=== PATIENT | female | born 1945 | race Caucasian/White ===

== ENCOUNTER 2022-11-13 09:28 | Inpatient (IN) | payer MEDICARE, SELFPAY ==
[2022-11-13 09:41] VITALS: BP 132/101; PULSE 109; RESP 18; TEMP 37.4; O2SAT 96; BMI 18.2
--- NOTE | 2022-11-13 09:47 | ED.AMS ---
HPI - Altered Mental Status General Chief Complaint: Stroke Stated Complaint: STROKE ALERT Time Seen by Provider: 11/13/22 09:35 Source: family (Son, Ford Alan ) and EMS Mode of arrival: EMS Limitations: altered mental status History of Present Illness HPI narrative: 76-year-old female past medical history adrenal insufficiency, LETTY, delirium, hypertension, GERD, ischemic colitis, hyperlipidemia, hyponatremia, normocytic anemia, obstructive sleep apnea, peripheral neuropathy who is brought to emergency department for change in mental status. Information came from EMS and from the patient's son. The patient is currently at [facility]. According to EMS, the patient's last well-known time was last night and this morning, when the nurses were rounding on the patient, the thumb that she was altered the patient was confused. The patient was talking but her language is nonsensical. According to the patient's son, patient has had several episodes of change in mental status on off the workup has been negative for stroke. The son states that the last time the patient had 1 of these episodes she was at [facility] and was diagnosed with a pulmonary embolism. Patient is currently taking Eliquis. Patient was made a stroke alert by EMS. I evaluated the patient on the stretcher. She was able to tell me her 1st name but not her last name. She was not able to follow simple commands. She would repeat words that she her from me or from the nursing staff. I did obtain an ED record from [facility] dated 10/30/2022. Patient presented with altered mental status. Patient was found to have bilateral PEs and an elevated troponin. ED diagnosis was delirium, bilateral pulmonary embolism, acute kidney injury and elevated troponin. Related Data Allergies Allergy/AdvReac Type Severity Reaction Status Date / Time No Known Allergies Allergy Verified 11/13/22 09:41 Review of Systems Review of Systems: Yes Unobtainable due to mental status [facility] Past Medical History [facility] Narrative: Past medical history: Adrenal insufficiency, LETTY, chronic pain syndrome, constipation, delirium, depression with anxiety, essential hypertension, falls, GERD, ischemic colitis, [place] syndrome, hyperlipidemia, hypokalemia, hyponatremia, melena, myoclonic gammopathy, normocytic anemia, obstructive sleep apnea, osteoporosis, peripheral neuropathy, surgical history: Appendectomy, , hysterectomy, cholecystectomy, ovarian cyst removed, peripheral nerve stimulator Social History Social History Use of substances other than those prescribed or required for medical reasons: Unknown Advance Directives: Yes Advance Directives on File: Yes Advance Directives Date on File: 11/13/22 Physical Exam ED Vital Signs: Vital Signs - 24 hr 11/13/22 09:41 11/13/22 12:08 Temperature 99.4 F Pulse Rate 109 H 102 H Respiratory Rate 18 15 Blood Pressure 132/101 H 177/95 H Pulse Oximetry 96 98 Oxygen Delivery Method Room Air Room Air BMI result Body Mass Index 18.2 Vital signs revealed an elevated pulse of 109. Elevated blood pressure of 132/108. Temperature was 99.4 degrees rectally. Exam General: Awake, patient is talking but her speech is nonsensical, she does repeat words that she hears. She does not follow simple commands Head: Normocephalic, atraumatic EENT: PERRL, Lids normal, sclera normal, conjunctiva normal, nose normal , ears normal, throat without erythema or exudates Neck: Supple, no adenopathy, trachea midline and nontender Lung: breath sounds symmetric, no wheezing, rales or rhonchi Chest: symmetric movement, nontender Heart: regular rate and rhythm, normal S1, S2 2/6 systolic murmur best heard the left lower sternal border or rubs Abdomen: soft, non-tender, nondistended, normal bowel sounds Extremities: Patient has had it heel boots on, patient's right lower extremity is larger than the left Neuro: Awake, oriented to person only, does not follow simple commands, repeats words that she hears otherwise speech is nonsensical Medical Decision Making Medical Decision Making MDM Narrative: 76-year-old female past medical history adrenal insufficiency, LETTY, delirium, hypertension, GERD, ischemic colitis, hyperlipidemia, hyponatremia, normocytic anemia, obstructive sleep apnea, peripheral neuropathy, bilateral pulmonary embolism diagnosed 10/30/2022-on Eliquis who is brought to emergency department for change in mental status last well-known time was last night and the patient was found to be altered this morning when the nursing staff at her care facility rounded on her. According to the patient's son, patient has had several presentations the past and recently was seen at [facility] and diagnosed with pulmonary embolism and is currently on Eliquis. Patient's vital signs did reveal an elevated blood pressure elevated pulse, she was afebrile. Patient is awake but has nonsensical speech and repeats words that she hears. I ordered the following evaluation: CBC, CMP, COVID-19, influenza, lipase, PT/INR, PT INR, troponin, TSH with reflex T4, urinalysis, chest x-ray one view, CT scan of the brain without IV contrast, EKG 13:01: At this time I suspect the patient may have an infectious process is the cause of her symptoms Patient's laboratory evaluation revealed normocytic anemia which is most likely chronic. Patient does have evidence for urinary tract infection based on her urinalysis microscopic evaluation. I did add blood cultures and lactic acid to the patient's laboratory evaluation The patient does have significant peripheral edema, she is not hypotensive therefore I do not think that she has a 30 cc/kilogram bolus but I will order 500 cc of normal saline IV bolus. Patient remains hypertensive she has had no episodes of hypotension Patient was ordered to get ceftriaxone 1 g IV. I will discuss admission with the covering hospitalist. Differential Diagnosis Differential Diagnoses: The differential diagnosis associated with the presentation includes Differential diagnosis includes was not limited to stroke, bleed, toxic metabolic syndrome, electrolyte abnormality, anemia Admission/Observation Consideration of admission/observation: Escalation of care including admission/observation considered Lab Data 11/13/22 10:54 11/13/22 10:54 Labs: Lab Results 11/13/22 11/13/22 11/13/22 Range/Units 09:42 10:15 10:54 WBC 10.3 (4.8-10.8) X10*3/uL RBC 3.10 L (4.20-5.50) X10*6/uL Hgb 9.3 L (12.0-16.0) g/dl Hct 28.6 L (37.0-47.0) % MCV 92.3 (80.0-98.0) fL MCH 30.0 (27.0-33.0) pg MCHC 32.5 (31.0-35.0) g/dl RDW 14.9 (11.0-16.0) % Plt Count 459 H (160-400) X10*3/uL MPV 9.5 (9.4-12.3) fL Immature Gran % (Auto) 0.8 H (0.0-0.4) % Neut % (Auto) 80.4 H (45-73) % Lymph % (Auto) 7.0 L (20-40) % [place] % (Auto) 9.3 (2-11) % Eos % (Auto) 2.0 (0-4) % Baso % (Auto) 0.5 (0-2) % Lymph # (Auto) 0.7 L (1.2-4.9) X10*3/uL [place] # (Auto) 1.0 (0.1-1.2) X10*3/uL Eos # (Auto) 0.2 (0.0-0.4) X10*3/uL Baso # (Auto) 0.1 (0.0-0.2) X10*3/uL Abs Immat Gran (auto) 0.08 H (0.00-0.03) X10*3/uL Absolute Neuts (auto) 8.3 (2.0-8.3) x10*3/uL Absolute Nucleated RBC 0.000 (0.0-0.012) X10*3/uL Nucleated RBC % (auto) 0.0 (0.0-0.2) /100WBC PT 16.6 H (11.1-13.3) SEC Whole Blood PT 16.4 H (11.1-13.5) sec INR 1.4 H (0.9-1.1) Whole Blood INR 1.4 H (0.9-1.1) APTT 34.6 (26.0-36.4) SEC Sodium 144 (135-145) mmol/L Potassium 3.9 (3.3-5.1) mmol/L Chloride 112 H (96-108) mmol/L Carbon Dioxide 20 L (22-29) mmol/L Anion Gap 16 (12-20) BUN 11 (9-16) mg/dL Creatinine 0.82 (0.5-1.4) mg/dL Estim Creat Clear Calc 48.5 Estimated GFR > 60 POC Glucose 116 H (60-115) mg/dL Random Glucose 111 (60-115) mg/dL Calcium 9.8 (8.4-10.2) mg/dL Total Bilirubin 0.6 (0.0-1.0) mg/dL AST 13 (5-31) U/L ALT 5 (0-31) U/L Alkaline Phosphatase 90 (39-117) U/L Troponin I High Sens 5.2 (<3.5-17.0) ng/L Total Protein 6.4 L (6.5-8.0) g/dL Albumin 3.0 L (3.5-5.0) g/dL Lipase 31 (8-78) U/L TSH 2.51 (0.32-4.0) uIU/mL Urine Color Yellow Urine Appearance Turbid Urine pH 5.5 (5.0-9.0) Ur Specific [place] 1.010 (1.005-1.025) Urine Protein 30 (1+) H (Neg-Trace) mg/dL Urine Glucose (UA) Negative (Negative) mg/dL Urine Ketones Negative (Negative) mg/dL Urine Blood Moderate (2+) H (Negative) Urine Nitrite Positive H (Negative) Ur Leukocyte Esterase Large (3+) H (Negative) Urine RBC 3-5 H (0-2) /HPF Urine WBC >50 H (0-5) /HPF Ur Squamous Epith Cells 3-5 (0-2) /HPF Urine Bacteria 4+ (None Seen) Hyaline Casts 0-2 (0-2) /LPF COVID-19 (YOLANDA) Negative (Negative) COVID-19 Clin Com See Note Influenza Type A (NUPUR) Negative (Negative) Influenza Type B (NUPUR) Negative (Negative) Influenza A & B Note See Note Independent Interpretation I performed an independent interpretation of an: Plain X-Ray and CT Scan Interpretation: My independent interpretation patient's chest x-ray is as follows: No acute disease, no pneumonia or infiltrates My independent interpretation patient's CT scan of the brain without IV contrast as follows: No acute bleed, stroke, she does have atrophy Radiology Impression Discussion of test interpretation with radiology: I have reviewed the radiologist's reading. Radiologist Impression: CT head/brain wo IV con IMPRESSION: 1. No evidence of acute intracranial hemorrhage or edematous territorial infarction. 2. 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 Moderate underlying microangiopathy and generalized cerebral volume loss. Dictated By: Evans Woodall DO XR chest 1V IMPRESSION: No active cardiopulmonary disease Dictated By: Raj Haas MD Discharge Plan Discharge Clinical Impression: Acute alteration in mental status, Urinary tract infection Patient Disposition: Admitted As Inpatient
--- NOTE | 2022-11-13 09:56 | PC.NURSE ---
pt a&ox0. pt not alert and oriented at this time. pt [facility] from [facility] after pt was found w/ ams, slurred speech and not being able to obey commands. LKW was 11/11. pt was found in this state when she woke up this am around 0700. 20gIV placed in left forearm. pt had foamy vomiting episode while triaging into system. vomiting episode has now subsided. provider bedside assessing pt.
--- NOTE | 2022-11-13 10:16 | PC.NURSE ---
xray bedside and imaging completed. pt now transporting to CT at this time.
--- NOTE | 2022-11-13 11:18 | PC.NURSE ---
pt not able to obey commands at this time - failed swallow eval.
--- NOTE | 2022-11-13 11:21 | PC.NURSE ---
straight catheterization performed - pt tolerated well. 250ml of cloudy, yellow urine obtained and sent to lab. documented in i&o section. purewick applied to suction. labs obtained and sent to lab. resting comfortably in no apparent distress. respirations even and unlabored. call ferrell placed within reach.
[2022-11-13 12:08] VITALS: BP 177/95; PULSE 102; RESP 15; O2SAT 98
--- NOTE | 2022-11-13 13:29 | PC.NURSE ---
pt pulling at medical equipment/iv site which is now wrapped, tech was unable to draw labs due to patient retracting her arms, spoke with provider who ordered IVP medications to help the patient relax to better participate in their care.
--- NOTE | 2022-11-13 13:46 | PC.NURSE ---
tech was able to draw 1st set of blood cultures
--- NOTE | 2022-11-13 13:46 | PC.NURSE ---
tech was able to obtain first round of cultures, will administer abx & IVF when 2nd set is obtained and sent.
--- NOTE | 2022-11-13 14:13 | PC.NURSE ---
nsr/sinus tachy on bus monitor. pt currently sleeping at this time. medication administered per provider order. resting comfortably in no apparent distress. respirations even and unlabored. call ferrell placed within reach.
--- NOTE | 2022-11-13 14:58 | PM.IMHP ---
History of Present Illness Date of Service: 11/13/22 Attending physician on admission: Craig Echavarria Chief Complaint: ams 76-year-old female with history of adrenal insufficiency, chronic pain syndrome, chronic constipation, depression and anxiety, hypertension, GERD, history of ischemic colitis, [place] syndrome, hyperlipidemia, monoclonal gammopathy, anemia of chronic disease, obstructive sleep apnea compliant with CPAP, peripheral neuropathy, history of TIAs, unspecified dementia, and recent history of pulmonary embolism anticoagulated with Eliquis presented to the ED earlier today from [facility], where she has been residing for [facility] following hospitalization last month for bilateral PEs at [facility], for evaluation of altered mental status. Per her son, at baseline, patient is oriented though has some degree of unspecified dementia at baseline. This morning, patient was very confused and agitated and appeared to be favoring the left side per SNF staff. On arrival to the hospital, patient slightly tachycardic at 01:02, vitals otherwise stable. Patient afebrile. There is no leukocytosis. She has a normocytic anemia with H/H 9.3/28.6%. Renal function appears normal, electrolyte levels Normal except for a slightly elevated chloride 112 and CO2 of 20. Troponin within normal limits. Urinalysis revealed leukocyte 3+, positive nitrites, 2+ blood, 1+ protein, positive urinary sediment, 4+ bacteria. Negative for COVID-19, influenza. Chest x-ray was negative for any acute cardiopulmonary abnormality. Head CT negative for any acute intracranial hemorrhage or edematous territorial infarction. There is chronic encephalomalacia of the right posterior antral gyrus and moderate underlying microangiopathy with generalized cerebral volume loss. ED provider initiated ceftriaxone for treatment of UTI with acute metabolic encephalopathy. On my exam, patient is somnolent and not arousable as she did require Haldol and lorazepam due to increasing agitation while in the ED. Review of Systems Review of Systems: Yes Unobtainable due to mental condition and Unobtainable due to mental status [facility] Medical History History of TIA (transient ischemic attack) Bilateral pulmonary embolism Anemia, chronic disease Peripheral neuropathy Obstructive sleep apnea on CPAP History of ischemic colitis [place] syndrome GERD (gastroesophageal reflux disease) Hypertension Monoclonal gammopathy Dementia Depression with anxiety Chronic constipation Chronic pain syndrome Adrenal insufficiency Social History Household Members: Unknown / Unable to assess and Other Housing: [facility] Unable to assess alcohol history related to: Unable to respond Patient Tobacco Use Status: Never used Tobacco Use of substances other than those prescribed or required for medical reasons: Unable to respond Currently Displaying Signs/Symptoms of Drug Intoxication Withdrawal: No Advance Directives: Yes Advance Directives on File: Yes Advance Directives Date on File: 11/13/22 Do you have thoughts of harming others: None Do you have a plan to hurt others: No Plan Recently lost weight without trying: Unsure How much weight loss: Not applicable Nutrition Risks: No Nutritional Risk Patient : No service: No Meds Allergies Allergy/AdvReac Type Severity Reaction Status Date / Time No Known Allergies Allergy Verified 11/13/22 09:41 Home Medications Medication Instructions Recorded Confirmed Last Taken Type acetaminophen 300 mg-codeine 30 mg 2 tab PO BID PRN Pain 11/13/22 11/13/22 Unknown History tablet apixaban 5 mg tablet (Eliquis) 5 mg PO BID 11/13/22 11/13/22 Unknown History aspirin 81 mg tablet,delayed 81 mg PO DAILY 11/13/22 11/13/22 Unknown History release atorvastatin 40 mg tablet 40 mg PO DAILY 11/13/22 11/13/22 Unknown History baclofen 20 mg tablet 20 mg PO BID 11/13/22 11/13/22 Unknown History bisacodyl 10 mg rectal suppository [address] DAILY PRN Constipation 11/13/22 11/13/22 Unknown History bupropion HCl 100 mg tablet 100 mg PO BID 11/13/22 11/13/22 Unknown History fluticasone furoate 27.5 1 spray intranasal BEDTIME 11/13/22 11/13/22 Unknown History mcg/actuation nasal spray,suspension lamotrigine 25 mg tablet 25 mg PO DAILY 11/13/22 11/13/22 Unknown History magnesium hydroxide 400 mg/5 mL 30 ml PO DAILY PRN Constipation 11/13/22 11/13/22 Unknown History oral suspension (Milk of Magnesia) naloxone 4 mg/actuation nasal 4 mg intranasal Q3M PRN Opioid 11/13/22 11/13/22 Unknown History spray (Narcan) Overdose ondansetron 4 mg disintegrating 4 mg PO Q8H PRN Nausea And Vomiting 11/13/22 11/13/22 Unknown History tablet pantoprazole 40 mg tablet,delayed 40 mg PO DAILY@0630 11/13/22 11/13/22 Unknown History release propranolol 20 mg tablet 20 mg PO BID 11/13/22 11/13/22 Unknown History sodium phosphates 19 gram-[address] DAILY PRN Constipation 11/13/22 11/13/22 Unknown History gram/118 mL enema (Fleet Enema) Physical Exam Vital Signs and Narrative: Vital Signs: Last Vital Signs Temp 99.4 F 11/13/22 09:41 Pulse 102 H 11/13/22 12:08 Resp 15 11/13/22 12:08 BP 177/95 H 11/13/22 12:08 Pulse Ox 98 11/13/22 12:08 O2 Del Method Room Air 11/13/22 12:08 BMI result Body Mass Index 18.2 Constitutional - somnolent and unarousable, No apparent distress Cardiovascular - S1S2, RRR, No edema Respiratory - Normal lung expansion, Normal respiratory effort, No respiratory distress, CTA bilaterally Gastrointestinal - NT / ND; +BS; No rebound or guarding Extremities - no calf tenderness bilaterally, no swelling Skin - Warm/Dry Neurological - somnolent and not arousable, snoring. PERRLA Results Labs 11/14/22 06:38 11/14/22 06:38 Labs: Laboratory Results - last 24 hr 11/13/22 11/13/22 11/13/22 09:42 10:15 10:54 MCV 92.3 MCH 30.0 MCHC 32.5 RDW 14.9 Plt Count 459 H MPV 9.5 Immature Gran % (Auto) 0.8 H Neut % (Auto) 80.4 H Lymph % (Auto) 7.0 L [place] % (Auto) 9.3 Eos % (Auto) 2.0 Baso % (Auto) 0.5 Lymph # (Auto) 0.7 L [place] # (Auto) 1.0 Eos # (Auto) 0.2 Baso # (Auto) 0.1 Abs Immat Gran (auto) 0.08 H Absolute Neuts (auto) 8.3 Absolute Nucleated RBC 0.000 Nucleated RBC % (auto) 0.0 PT 16.6 H Whole Blood PT 16.4 H INR 1.4 H Whole Blood INR 1.4 H APTT 34.6 Anion Gap 16 Estim Creat Clear Calc 48.5 Estimated GFR > 60 POC Glucose 116 H Random Glucose 111 Lactic Acid Calcium 9.8 Total Bilirubin 0.6 AST 13 ALT 5 Alkaline Phosphatase 90 Total Protein 6.4 L Albumin 3.0 L Lipase 31 TSH 2.51 Urine Color Yellow Urine Appearance Turbid Urine pH 5.5 Ur Specific [place] 1.010 Urine Protein 30 (1+) H Urine Glucose (UA) Negative Urine Ketones Negative Urine Blood Moderate (2+) H Urine Nitrite Positive H Ur Leukocyte Esterase Large (3+) H Urine RBC 3-5 H Urine WBC >50 H Ur Squamous Epith Cells 3-5 Urine Bacteria 4+ Hyaline Casts 0-2 COVID-19 (YOLANDA) Negative COVID-19 Clin Com See Note Influenza Type A (NUPUR) Negative Influenza Type B (NPUUR) Negative Influenza A & B Note See Note 11/13/22 13:44 MCV MCH MCHC RDW Plt Count MPV Immature Gran % (Auto) Neut % (Auto) Lymph % (Auto) [place] % (Auto) Eos % (Auto) Baso % (Auto) Lymph # (Auto) [place] # (Auto) Eos # (Auto) Baso # (Auto) Abs Immat Gran (auto) Absolute Neuts (auto) Absolute Nucleated RBC Nucleated RBC % (auto) PT Whole Blood PT INR Whole Blood INR APTT Anion Gap Estim Creat Clear Calc Estimated GFR POC Glucose Random Glucose Lactic Acid 0.9 Calcium Total Bilirubin AST ALT Alkaline Phosphatase Total Protein Albumin Lipase TSH Urine Color Urine Appearance Urine pH Ur Specific [place] Urine Protein Urine Glucose (UA) Urine Ketones Urine Blood Urine Nitrite Ur Leukocyte Esterase Urine RBC Urine WBC Ur Squamous Epith Cells Urine Bacteria Hyaline Casts COVID-19 (YOLANDA) COVID-19 Clin Com Influenza Type A (NUPUR) Influenza Type B (NUPUR) Influenza A & B Note Imaging Radiologist's Impressions: Impressions Chest X-Ray 11/13/22 09:57 IMPRESSION: No active cardiopulmonary disease Head CT 11/13/22 10:18 IMPRESSION: 1. No evidence of acute intracranial hemorrhage or edematous territorial infarction. 2. 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 Moderate underlying microangiopathy and generalized cerebral volume loss. Assessment and Plan (1) Urinary tract infection: Status: Acute (2) Acute alteration in mental status: Status: Acute Plan 76-year-old female with history of adrenal insufficiency, chronic pain syndrome, chronic constipation, depression and anxiety, hypertension, GERD, history of ischemic colitis, Galva syndrome, hyperlipidemia, monoclonal gammopathy, anemia of chronic disease, obstructive sleep apnea compliant with CPAP, peripheral neuropathy, history of TIAs, unspecified dementia, and recent history of pulmonary embolism anticoagulated with Eliquis admitted for acute urinary tract infection with acute toxic metabolic encephalopathy. # urinary tract infection -UA with 3+ leukocytes, positive nitrites, 2+ blood, positive urinary sediment, 4+ bacteria -IV cefepime initiated given recent hospitalization (initiated 11/13) -no leukocytosis, tachycardic but no other sirs criteria. No sepsis -follow urine culture, blood cultures # acute toxic metabolic encephalopathy -secondary to UTI as above as well as Haldol/lorazepam administered in ED -head CT negative for any acute intracranial abnormality -keep NPO for now, [employer]ANT bedside swallow evaluation ordered -monitor mentation # bilateral pulmonary embolism -hospitalization 10/10-10/15 at [facility] -NPO for now -Initiate therapeutic Lovenox until mentation improves and transition back to Eliquis # ELIO -CPAP at bedtime # hypertension -keep NPO for now -utilize IV antihypertensives as needed, resume oral antihypertensives as mentation improves #Adrenal insufficiency -not on chronic steroid therapy #Unspecified dementia -Acute encephalopathy as above -At baseline, pt oriented and conversant -Continue home meds # anemia of chronic disease -H/H baseline, above transfusion threshold #Chronic pain syndrome -resume tramadol as above dvt prophaylxis- lovenox full code- call placed to HCP, haley Youngblood . Awaiting call back to confirm code status Patient requires inpatient stay at least 2 midnights for management of urinary tract infection with acute toxic metabolic encephalopathy requiring IV antibiotics and close monitoring of mentation Time Spent With Patient Time: Total time managing care of this patient today ____ minutes. Quality Stroke Does the patient have a stroke diagnosis?: No VTE Prior VTE?: Yes VTE Risk Level:: Medical - moderate - high VTE Device Contraindication: Treatment Not Indicated VTE Drug Contraindication: N/A - Med Ordered
--- NOTE | 2022-11-13 15:58 | PHA.MEDREC ---
Pharmacy Consult ? Medication Reconciliation Pharmacy has completed the medication reconciliation. Patient from [facility].
[2022-11-13 16:36] VITALS: BP 116/61; PULSE 100; RESP 16; O2SAT 99
--- NOTE | 2022-11-13 16:39 | PC.NURSE ---
report given to RN - will notify transport.
[2022-11-13 17:57] VITALS: BP 133/75; PULSE 100; RESP 18; TEMP 36.5; O2SAT 98
[2022-11-13 18:21] VITALS: BMI 18.1
[2022-11-13 19:17] VITALS: BP 156/91; PULSE 112; RESP 18; TEMP 37; O2SAT 98
[2022-11-13 23:16] VITALS: BP 149/70; PULSE 123; RESP 20; TEMP 37.2; O2SAT 98
--- NOTE | 2022-11-13 23:29 | PC.NURSE ---
Addendum entered by Marjorie Robbins RN 11/14/22 05:20: Pt stayed dry all night. bladder scanned for 484ml. notified. Ordered to straight cath. Original Note: Acquired care at 1900.Pt is confused. screams and saying no all the time. Tachy on tele. BP is slightly elevated 150's/91. 2330- HR remains on 120's. agitated and screaming. BP is at 140s/70s. notified.
[2022-11-14 03:44] VITALS: BP 153/76; PULSE 120; RESP 18; TEMP 37; O2SAT 100
--- NOTE | 2022-11-14 06:43 | PM.EVENT ---
Event Note Date of Service: 11/14/22 Event Note: Sinus tach up to 120, not get propranolol 20 bid d/t NPO, meotporlol iv 2.5 ordered, maybe adjusted Urinary retention 480, straight cath x 1 Time Spent With Patient Time: Total time managing care of this patient today ____ minutes.
[2022-11-14 08:00] VITALS: BP 153/72; PULSE 121; RESP 20; TEMP 37.2; O2SAT 98
--- NOTE | 2022-11-14 08:29 | PC.NURSE ---
patient swallowed 6 oz water, patient swallowed 1 aspirin pill with no issues.
--- NOTE | 2022-11-14 10:45 | MHC.CM.PN ---
Patient is here with AMS; CM attempted to reach both contacts at listed #'s but was not able to do so. IMM will be mailed certified letter to Primary Contact/Ariel and a copy has been placed on the chart. Patient appears to be a LTC Resident at [facility] and returning there is the tentative dc plan. CM has initiated and will follow for dc planning.
[2022-11-14 11:33] VITALS: BP 142/73; PULSE 126; RESP 20; TEMP 36.9; O2SAT 98
--- NOTE | 2022-11-14 11:52 | MHC.CM.PN ---
CORRECTION: Patient was STR (not LTC) at [facility] and there is no bed hold.
--- NOTE | 2022-11-14 12:27 | HO.PM.IMPN ---
Subjective Subjective Date of Service: 11/14/22 Interval History: Seen and evaluated Patient is tachycardic confused, afraid and anxious No fever or chills Review of Systems Review of Systems: Yes all other systems are reviewed and are negative; No Other Physical Exam Vital Signs: Vital Signs: Last Vital Signs Temp 98.4 F 11/14/22 11:33 Pulse 126 H 11/14/22 11:33 Resp 20 11/14/22 11:33 BP 142/73 H 11/14/22 11:33 Pulse Ox 98 11/14/22 11:33 O2 Del Method Room Air 11/14/22 11:33 BMI result Body Mass Index 18.1 Const: Other: Constitutional : Awake, interactive, not in distress Neck : Normal inspection, Supple Cardiovascular : RRR, no JVP, no lower extremity edema Respiratory : good bilateral air entry, no crackles, wheezes or rhonchi Gastrointestinal: soft, lax, Normal bowel sounds, Non tender Skin : Warm, Dry Neurological : Alert & disoriented x3, No focal deficit Objective Data Active Medications Apixaban (Apixaban 5 Mg Tablet) 5 mg PO BID [facility] Aspirin (Aspirin Enteric Coated 81 Mg Tablet.) 81 mg PO DAILY [facility] Last Admin: 11/14/22 09:48 Dose: 81 mg Documented By: KACI Atorvastatin Calcium (Atorvastatin Calcium 40 Mg Tablet) 40 mg PO BEDTIME [facility] Baclofen (Baclofen 10 Mg Tablet) 10 mg PO BID [facility] Bupropion HCl (Bupropion Hcl 100 Mg Tablet) 100 mg PO BID [facility] Docusate Sodium (Docusate Sodium 100 Mg Capsule) 100 mg PO DAILY PRN PRN Reason: Constipation Cefepime HCl 2 gm/ Sodium (Chloride) 50 mls @ 100 mls/hr IV Q12H [facility] Last Infusion: 11/14/22 09:49 Dose: Infused Documented By: KACI Lamotrigine (Lamotrigine 25 Mg Tablet) 25 mg PO DAILY [facility] Naloxone HCl (Naloxone Hcl Nasal 4 Mg [place]) 4 mg NOSTRILALT Q3M PRN PRN Reason: Opioid Overdose Non-Formulary Medication (Fluticasone Furoate) 1 spray NOSTRIL-B BEDTIME [facility] Omeprazole (Omeprazole 20 Mg Capsule.) 20 mg PO DAILY@0630 [facility] Ondansetron HCl (Ondansetron Hcl 4 Mg/2 Ml Vial) 4 mg IVPUSH Q8H PRN PRN Reason: Nausea and Vomiting Propranolol HCl (Propranolol Hcl 20 Mg Tablet) 20 mg PO BID [facility]; Protocol Sodium Chloride (0.9 % Sodium Chloride Flush 3 Ml Syringe) 3 ml IVFLUSH QSHIFT [facility] Last Admin: 11/14/22 09:47 Dose: 3 ml Documented By: KACI Labs 11/14/22 06:38 11/14/22 06:38 Labs: Laboratory Results - last 24 hr 11/13/22 11/14/22 13:44 06:38 MCV 93.0 MCH 29.8 MCHC 32.0 RDW 14.7 Plt Count 490 H MPV 9.8 Immature Gran % (Auto) 0.8 H Neut % (Auto) 78.6 H Lymph % (Auto) 7.8 L [place] % (Auto) 10.3 Eos % (Auto) 1.8 Baso % (Auto) 0.7 Lymph # (Auto) 0.9 L [place] # (Auto) 1.2 Eos # (Auto) 0.2 Baso # (Auto) 0.1 Abs Immat Gran (auto) 0.09 H Absolute Neuts (auto) 9.4 H Absolute Nucleated RBC 0.000 Nucleated RBC % (auto) 0.0 Hold Purple Top SEE NOTE Anion Gap 16 Estim Creat Clear Calc 55.8 Estimated GFR > 60 Random Glucose 102 Lactic Acid 0.9 Calcium 9.6 Microbiology Microbiology Results: Microbiology 11/13/22 Unknown Urine Culture - Preliminary Urine Catheterized - Straight Catheter Gram negative gabe Assessment and Plan (1) Urinary tract infection: Status: Acute (2) Acute alteration in mental status: Status: Acute (3) Physical deconditioning: Status: Acute Plan 76-year-old female with history of adrenal insufficiency, chronic pain syndrome, chronic constipation, depression and anxiety, hypertension, GERD, history of ischemic colitis, Sutherland syndrome, hyperlipidemia, monoclonal gammopathy, anemia of chronic disease, obstructive sleep apnea compliant with CPAP, peripheral neuropathy, history of TIAs, unspecified dementia, and recent history of pulmonary embolism anticoagulated with Eliquis admitted for acute urinary tract infection with acute toxic metabolic encephalopathy. # acute toxic metabolic encephalopathy 2/[address] negative for any acute intracranial abnormalities but showing underling chronic microangiopathy CUSTOMER TRAINER bedside swallow evaluation Start modified diet for now recurrent reorientation Treat infection w Cefepime pending final cultures # bilateral pulmonary embolism hospitalization 10/10-10/15 at [facility] restart Eliquis # PHysical deconditioning PT eval for SNF placement # ELIO CPAP at bedtime # hypertension resume oral antihypertensives #Unspecified dementia likely vascular in origing At baseline, pt oriented and conversant Continue home meds # anemia of chronic disease H/H baseline, above transfusion threshold #Chronic pain syndrome resume tramadol as above dvt prophaylxis lovenox full code- HCP invoked and discussed about goals of care Patient requires inpatient stay overnight for management of urinary tract infection with acute toxic metabolic encephalopathy requiring IV antibiotics and close monitoring of mentation Time Spent With Patient Time: Total time managing care of this patient today ____ minutes. Quality Stroke Does the patient have a stroke diagnosis?: No VTE Prior VTE?: Yes VTE Risk Level:: Medical - moderate - high VTE Device Contraindication: Treatment Not Indicated VTE Drug Contraindication: N/A - Med Ordered
--- NOTE | 2022-11-14 13:28 | PC.NURSE ---
assumed care of pt at 1100. Pt awake, anxious/fearful. Pleasantly confused, new diet orders placed. administrative project coordinator per APR, pills whole. Pt stating she is scared of everything , responding well to reassurance by staff. No urine output today, bladder scanned for 119. Pt encouraged to increase PO fluids, assisted with drinking 120mL of water, states she feels satisfied, no complaints of pain. Safety precautions remain in place, call ferrell within reach, bed alarm on, repo q2.
[2022-11-14 15:36] VITALS: BP 132/60; PULSE 83; RESP 18; TEMP 37.1; O2SAT 98
[2022-11-14 19:34] VITALS: BP 137/65; PULSE 91; RESP 18; TEMP 36.8; O2SAT 98
[2022-11-14 23:18] VITALS: BP 128/66; PULSE 80; RESP 18; TEMP 37; O2SAT 98
--- NOTE | 2022-11-15 01:00 | PC.NURSE ---
Assumed care for patient @ 19:00 (11/14). Pt has hx dementia, remains confused. Reoriented and reassurance provided. VSS. Pt bladder scanned for 137ml at 19:30. Denies pelvic pressure or discomfort. Cefepime given as scheduled. No acute issues noted or offered by patient. Safety measures in place including bed alarm, in-room camera. Foam applied to blanchable red buttocks. Handoff report given 00:45 11/15.
[2022-11-15 03:47] VITALS: BP 146/58; PULSE 76; RESP 18; TEMP 37.2; O2SAT 97
[2022-11-15 08:00] VITALS: BP 143/74; PULSE 87; RESP 20; TEMP 36.6; O2SAT 97
[2022-11-15 12:00] VITALS: BP 124/65; PULSE 75; RESP 18; TEMP 36.7; O2SAT 98
--- NOTE | 2022-11-15 12:07 | MHC.SL.SWA ---
Speech Pathologist Impression: Risk of aspiration Risk of Aspiration Due to: Neurological Condition Dysphasia Diet Status: UPGRADE to NDD3 Liquid Consistency and Strategies for Safe Swallow: Liquid Intake Recommendation: Thin Liquid Intake Strategies: Small Sips No Straws Solid Food Consistency: Dietary Recommendations: Chopped/Advanced (NDD3) Additional Modifications to Solid Foods: Pt seen by ADA ACCOMMODATION CONSULTANT this morning for bedside dysphagia evaluation. Pt demonstrated mildly slowed and prolonged mastication, some oral residue which cleared with a liquid wash. Swallow was mildly delayed. No overt s/s of aspiration. Recommend UPGRADE from ground diet to CHOPPED/ADVANCED (NDD3), continue w/ THIN liquids, pills WHOLE in PUREE. Ensure 1:1 supervision and aspiration precautions during PO intake. ADA ACCOMMODATION CONSULTANT to f/u 1x to ensure tolerance. Oral Medication Intake: Whole with Puree Please contact the pharmacy regarding appropriate crushable or liquid drug formulations that are available whenever modified delivery is recommended. Compensatory Strategies and Precautions to be Taken for Safe Swallow: Sitting Upright (90 deg) Double Swallow Small Bites and Sips Alternate Liquids/Solids Rate of Ingestion Change Avoid Specific Foods Supervision While Eating and Drinking for Safe Swallow: Total Supervision (1:1) Foods to Avoid: Hard, tough to chew solids; mixed consistencies Swallowing Recommended Treatments: Compens. Strategy Educat. Recommendation for Speech: Inpatient Speech Therapy Comment: 1 f/u Pcts Clinican/Clinical Fellow: No Supervisory Statement: I have reviewed and agree with the student/clinical fellow's documentation: N/A Speech Language Pathologist: Tootie Saunders M.A., CCC-ADA ACCOMMODATION CONSULTANT
[2022-11-15 13:08] VITALS: BMI 22.6
--- NOTE | 2022-11-15 13:25 | PHA.PROG ---
Admission Date/Time: November 13, 2022 14:27 Indication: OTHER Weight in k.4 kg Adjusted body weight in Kg: [place] body weight in Kg: Obesity Dosing Indication % IBW: Serum Creatinine - Last 168 Hours 11/13/22 11/14/22 11/15/22 10:54 06:38 08:55 Creatinine 0.82 0.71 Cancelled 11/15/22 12:37 Creatinine 0.74 Estimated CrCl and GFR - Last 168 Hours 11/13/22 11/14/22 11/15/22 10:54 06:38 08:55 Estim Creat Clear Calc 48.5 55.8 Cancelled Estimated GFR > 60 > 60 Cancelled 11/15/22 12:37 Estim Creat Clear Calc 53.5 Estimated GFR > 60 Vancomycin Loading Dose: 1250MG LOAD Current Vancomycin Dosing Regimen: 1000 Q24H Vancomycin Monitoring using AUC goal of 400 - 600 range with trough as surrogate marker: AUC 423, TROUGH 11.7 Date and Time for next Vancomycin Level to be drawn: 11/17 @0900 Pharmacist Comments on Vancomycin Plan: Vancomycin dosing will take advantage of [employer] as a clinical decision support tool that uses Bayesian modeling to calculate individual patient's pharmacokinetic parameters and forecast the patient's drug concentration time course with the target goal AUC 24 range of 400 - 600 mg/L/hr.
--- NOTE | 2022-11-15 14:12 | HO.PM.IMPN ---
Subjective Subjective Date of Service: 11/15/22 Interval History: Seen and evaluated Heart rate better controlled confused sweetly, more alert than yesterday No fever or chills Review of Systems Review of Systems: Yes all other systems are reviewed and are negative Physical Exam Vital Signs: Vital Signs: Last Vital Signs Temp 98.0 F 11/15/22 12:00 Pulse 75 11/15/22 12:00 Resp 18 11/15/22 12:00 BP 124/65 11/15/22 12:00 Pulse Ox 98 11/15/22 12:00 O2 Del Method Room Air 11/15/22 12:00 BMI result Body Mass Index 22.6 Const: Other: Constitutional : Awake, interactive, not in distress Neck : Normal inspection, Supple Cardiovascular : RRR, no JVP, no lower extremity edema Respiratory : good bilateral air entry, no crackles, wheezes or rhonchi Gastrointestinal: soft, lax, Normal bowel sounds, Non tender Skin : Warm, Dry Neurological : Alert & disoriented x3, No focal deficit Objective Data Active Medications Apixaban (Apixaban 5 Mg Tablet) 5 mg PO BID [facility] Last Admin: 11/15/22 08:17 Dose: 5 mg Documented By: TRISTON Aspirin (Aspirin Enteric Coated 81 Mg Tablet.Dr) 81 mg PO DAILY [facility] Last Admin: 11/15/22 08:17 Dose: 81 mg Documented By: TRISTON Atorvastatin Calcium (Atorvastatin Calcium 40 Mg Tablet) 40 mg PO BEDTIME [facility] Last Admin: 11/14/22 20:16 Dose: 40 mg Documented By: SRINIVASAN Baclofen (Baclofen 10 Mg Tablet) 10 mg PO BID [facility] Last Admin: 11/15/22 08:17 Dose: 10 mg Documented By: TRISTON Bupropion HCl (Bupropion Hcl 100 Mg Tablet) 100 mg PO BID [facility] Last Admin: 11/15/22 08:17 Dose: 100 mg Documented By: TRISTON Docusate Sodium (Docusate Sodium 100 Mg Capsule) 100 mg PO DAILY PRN PRN Reason: Constipation Fluticasone Propionate (Fluticasone Propionate Nasal 16 Gm [place]) 1 spray NOSTRIL-B BEDTIME [facility] Last Admin: 11/14/22 22:42 Dose: Not Given Documented By: SRINIVASAN Non-Admin Reason: Patient Refused Cefepime HCl 2 gm/ Sodium (Chloride) 50 mls @ 100 mls/hr IV Q12H [facility] Last Infusion: 11/15/22 09:00 Dose: Infused Documented By: TRISTON Vancomycin HCl 1,000 mg/ (Sodium Chloride) 270 mls @ 270 mls/hr IV Q24H [facility] Lamotrigine (Lamotrigine 25 Mg Tablet) 25 mg PO DAILY [facility] Last Admin: 11/15/22 08:17 Dose: 25 mg Documented By: TRISTON Naloxone HCl (Naloxone Hcl Nasal 4 Mg [place]) 4 mg NOSTRILALT Q3M PRN PRN Reason: Opioid Overdose Omeprazole (Omeprazole 20 Mg Capsule.Dr) 20 mg PO DAILY@0630 [facility] Last Admin: 11/15/22 06:00 Dose: 20 mg Documented By: LAURO Ondansetron HCl (Ondansetron Hcl 4 Mg/2 Ml Vial) 4 mg IVPUSH Q8H PRN PRN Reason: Nausea and Vomiting Pharmacy Consult (Consult Rx Vancomycin Dosing) 1 each MISCELLANE DAILY PRN PRN Reason: Consult order Propranolol HCl (Propranolol Hcl 20 Mg Tablet) 20 mg PO BID [facility]; Protocol Last Admin: 11/15/22 08:17 Dose: 20 mg Documented By: TRISTON Sodium Chloride (0.9 % Sodium Chloride Flush 3 Ml Syringe) 3 ml IVFLUSH QSHIFT [facility] Last Admin: 11/15/22 08:17 Dose: 3 ml Documented By: TRISTON Labs 11/15/22 08:55 11/15/22 12:37 Labs: Laboratory Results - last 24 hr 11/15/22 11/15/22 08:55 12:37 MCV 93.2 MCH 29.5 MCHC 31.6 RDW 14.9 Plt Count 419 H MPV 10.4 Absolute Nucleated RBC 0.000 Nucleated RBC % (auto) 0.0 Anion Gap Cancelled 13 Estim Creat Clear Calc Cancelled 53.5 Estimated GFR Cancelled > 60 Random Glucose Cancelled 100 Calcium Cancelled 9.4 Microbiology Microbiology Results: Microbiology 11/13/22 Unknown Urine Culture - Preliminary Urine Catheterized - Straight Catheter Escherichia coli Enterococcus/Streptococcus sp 11/13/22 13:54 Blood Culture - Preliminary Blood - Venous No growth after 24 hours. 11/13/22 13:44 Blood Culture - Preliminary Blood - Venous No growth after 24 hours. Assessment and Plan (1) Physical deconditioning: Status: Acute (2) Urinary tract infection: Status: Acute (3) Acute alteration in mental status: Status: Acute Plan 76-year-old female with history of adrenal insufficiency, chronic pain syndrome, chronic constipation, depression and anxiety, hypertension, GERD, history of ischemic colitis, Shipman syndrome, hyperlipidemia, monoclonal gammopathy, anemia of chronic disease, obstructive sleep apnea compliant with CPAP, peripheral neuropathy, history of TIAs, unspecified dementia, and recent history of pulmonary embolism anticoagulated with Eliquis admitted for acute urinary tract infection with acute toxic metabolic encephalopathy. # acute toxic metabolic encephalopathy 2/[address] negative for any acute intracranial abnormalities but showing underling chronic microangiopathy seems to be improving ENCEPHALOGRAPHER rec modified diet recurrent reorientation Treat infection w Cefepime pending final cultures # bilateral pulmonary embolism hospitalization 10/10-10/15 at [facility] restart Eliquis # PHysical deconditioning PT eval for SNF placement # ELIO CPAP at bedtime # hypertension resume oral antihypertensives #Unspecified dementia likely vascular in origing At baseline, pt oriented and conversant Continue home meds # anemia of chronic disease Hb dropped to 7.4 this morning no bleeding reported could be dilutional follow H&H and check occult stool #Chronic pain syndrome resume tramadol as above dvt prophaylxis lovenox full code HCP invoked and discussed about goals of care Patient requires inpatient stay overnight for management of urinary tract infection with acute toxic metabolic encephalopathy requiring IV antibiotics and close monitoring of mentation Time Spent With Patient Time: Total time managing care of this patient today ____ minutes. Quality Stroke Does the patient have a stroke diagnosis?: No VTE Prior VTE?: Yes VTE Risk Level:: Medical - moderate - high VTE Device Contraindication: Treatment Not Indicated VTE Drug Contraindication: N/A - Med Ordered
[2022-11-15 15:23] VITALS: BP 139/65; PULSE 76; RESP 18; TEMP 36.7; O2SAT 99
--- NOTE | 2022-11-15 19:00 | PC.NURSE ---
Pt alert to self, year and president only pleasantly confused. COL[place]GA to command with generalized weakness. LS dim denies SOB or CP. Purewick in place with clear concentrated urine, continues IV antibiotics per order. Afternoon Vanco stopped d/t infiltrated IV left arm. Dr Echavarria notified restarted when able to obtain new access. Brother HCP updated by this RN and plan for MD to call for update. Repos in bed for comfort. Poor appetite per patient requesting ensure MD notified. Will continue to monitor and report changes
[2022-11-15 19:13] VITALS: BP 137/63; PULSE 77; RESP 18; TEMP 36.7; O2SAT 97
[2022-11-16] VITALS: BP 117/56; PULSE 73; RESP 20; TEMP 36.3; O2SAT 97
[2022-11-16 03:46] VITALS: BP 119/56; PULSE 76; RESP 20; TEMP 36.1; O2SAT 97
[2022-11-16 06:39] LABS: Anion Gap 12 (12-20); Blood Urea Nitrogen 15 mg/dL (9-16); Calcium 8.8 mg/dL (8.4-10.2); Carbon Dioxide 20 mmol/L (22-29); Chloride 108 mmol/L (96-108); Creatinine Clr Calc Pharmacy 49.8; Estimated Glomerular Filt Rate > 60; Glucose Random 87 mg/dL (60-115); Iron 28 mcg/dL (30-160); Percent Iron Saturation 18 % (15-50); Potassium 3.3 mmol/L (3.3-5.1); Sodium 137 mmol/L (135-145); Total Iron Binding Capacity 156 mcg/dL (228-428); Unsaturated Iron Binding 128 ug/dL
[2022-11-16 07:51] VITALS: BP 123/62; PULSE 78; RESP 17; TEMP 37.4; O2SAT 97
--- NOTE | 2022-11-16 09:56 | MHC.CM.PN ---
Addendum entered by Rimma Pillai RN 11/16/22 10:20: IMM 11/16/22 TO BE DELIVERD TO PRIMARY CONTACT/HCP SHENA AT ADDRESS ON FILE, SHENA AGREEABLE TO DC PLAN AND WILL MEET PT AT [facility] LATER TODAY. Original Note: ANTIC PT WILL BE MEDICALLY CLEARED TO RETURN TO [facility] [[email or web address]] AT [facility] ANGELA MARTÍNEZ FOR BLS TRANSPORT AT 1:30PM.
[2022-11-16 10:10] VITALS: BP 130/62; PULSE 88; RESP 20; O2SAT 97
--- NOTE | 2022-11-16 10:54 | PM.DS ---
DS: Providers Provider Date of Service: 11/16/22 Date of admission: 11/13/22 14:27 Primary care physician: Alcon Bates MD DS: Diagnosis Discharge Diagnosis (1) Physical deconditioning: Status: Acute (2) Urinary tract infection: Status: Acute (3) Acute alteration in mental status: Status: Acute (4) Iron deficiency anemia: Status: Acute (5) Toxic metabolic encephalopathy: Status: Acute DS: Summary Hospital Course Hospital Course: Admission note HPI 76-year-old female with history of adrenal insufficiency, chronic pain syndrome, chronic constipation, depression and anxiety, hypertension, GERD, history of ischemic colitis, Afton syndrome, hyperlipidemia, monoclonal gammopathy, anemia of chronic disease, obstructive sleep apnea compliant with CPAP, peripheral neuropathy, history of TIAs, unspecified dementia, and recent history of pulmonary embolism anticoagulated with Eliquis presented to the ED earlier today from [facility], where she has been residing for STR following hospitalization last month for bilateral PEs at [facility], for evaluation of altered mental status. Per her son, at baseline, patient is oriented though has some degree of unspecified dementia at baseline. This morning, patient was very confused and agitated and appeared to be favoring the left side per SNF staff. On arrival to the hospital, patient slightly tachycardic at 01:02, vitals otherwise stable. Patient afebrile. There is no leukocytosis. She has a normocytic anemia with H/H 9.3/28.6%. Renal function appears normal, electrolyte levels Normal except for a slightly elevated chloride 112 and CO2 of 20. Troponin within normal limits. Urinalysis revealed leukocyte 3+, positive nitrites, 2+ blood, 1+ protein, positive urinary sediment, 4+ bacteria. Negative for COVID-19, influenza. Chest x-ray was negative for any acute cardiopulmonary abnormality. Head CT negative for any acute intracranial hemorrhage or edematous territorial infarction. There is chronic encephalomalacia of the right posterior antral gyrus and moderate underlying microangiopathy with generalized cerebral volume loss. ED provider initiated ceftriaxone for treatment of UTI with acute metabolic encephalopathy. On my exam, patient is somnolent and not arousable as she did require Haldol and lorazepam due to increasing agitation while in the ED. Hospital course # acute toxic metabolic encephalopathy 2/[address] negative for any acute intracranial abnormalities but showing underling chronic microangiopathy. Improved with treatment with IV antibiotics of Cefepime and Vancomycin as urine cultures grew 2 bacterias of E.Coli and Enterococcus. Evaluated by speech therapy who recommended modified diet of Chopped advanced NDD3. # bilateral pulmonary embolism hospitalization 10/10-10/15 at [facility] Continue Eliquis, Hold Aspirin on discharge. # ELIO CPAP at bedtime #Unspecified dementia likely vascular in origin CT scan showing moderate loss and evidence of chronic microangiopathic disease. # Iron deficiency anemia Hemoglobin level stable 7-8 since admission with no reported bloody bowel motions. occult stool test ordered but not done as patient did not pass stool. no bleeding reported. Found to have low Iron stores and started on Iron supplement. could be secondary to chronic loss from being on blood thinners Continue antibiotics as prescribed Hold aspirin start IRon pills Repeat CBC as outpatient Time Spent with Patient Time attestation: Total time managing care of this patient today ____ minutes. Discharge coordination time: Greater than 30 minutes Quality: Safe Use of Opioids Does Pt have an Active Cancer Diagnosis on the Problem List?: No Quality: Stroke Does the patient have a stroke diagnosis?: No Physical Exam Vital Signs: Vital Signs: Last Vital Signs Temp 99.4 F 11/16/22 07:51 Pulse 88 11/16/22 10:10 Resp 20 11/16/22 10:10 BP 130/62 11/16/22 10:10 Pulse Ox 97 11/16/22 10:10 O2 Del Method Room Air 11/16/22 10:10 BMI result Body Mass Index 22.6 Const: Other: Constitutional : Awake, interactive, not in distress Neck : Normal inspection, Supple Cardiovascular : RRR, no JVP, no lower extremity edema Respiratory : good bilateral air entry, no crackles, wheezes or rhonchi Gastrointestinal: soft, lax, Normal bowel sounds, Non tender Skin : Warm, Dry Neurological : Alert & oriented to self and place, mildly anxious, No focal deficit DS: Data Data Completed and Pending Labs on day of discharge: Laboratory Results - last 24 hr 11/15/22 11/15/22 11/15/22 08:55 12:37 14:55 WBC 7.5 8.1 RBC 2.51 L D 2.58 L Hgb 7.4 L D 7.8 L Hct 23.4 L D 23.8 L MCV 93.2 92.2 MCH 29.5 30.2 MCHC 31.6 32.8 RDW 14.9 15.0 Plt Count 419 H 409 H MPV 10.4 9.6 Absolute Nucleated RBC 0.000 0.000 Nucleated RBC % (auto) 0.0 0.0 Sodium Cancelled 137 Potassium Cancelled 3.4 Chloride Cancelled 108 Carbon Dioxide Cancelled 19 L Anion Gap Cancelled 13 BUN Cancelled 14 Creatinine Cancelled 0.74 Estim Creat Clear Calc Cancelled 53.5 Estimated GFR Cancelled > 60 Random Glucose Cancelled 100 Calcium Cancelled 9.4 Iron TIBC % Saturation Unsat Iron Binding 11/16/22 05:46 WBC 6.8 RBC 2.43 L Hgb 7.4 L Hct 22.4 L MCV 92.2 MCH 30.5 MCHC 33.0 RDW 14.8 Plt Count 365 MPV 10.0 Absolute Nucleated RBC 0.000 Nucleated RBC % (auto) 0.0 Sodium 137 Potassium 3.3 Chloride 108 Carbon Dioxide 20 L Anion Gap 12 BUN 15 Creatinine 0.69 Estim Creat Clear Calc 49.8 Estimated GFR > 60 Random Glucose 87 Calcium 8.8 D Iron 28 L TIBC 156 L % Saturation 18 Unsat Iron Binding 128 Preliminary micro results at discharge 11/13/22 13:54 Blood Culture - Preliminary Blood - Venous No growth after 48 hours. 11/13/22 13:44 Blood Culture - Preliminary Blood - Venous No growth after [address] scan - head: Radiologist's impression: ITS Impressions Chest X-Ray 11/13/22 09:57 IMPRESSION: No active cardiopulmonary disease Head CT 11/13/22 10:18 IMPRESSION: 1. No evidence of acute intracranial hemorrhage or edematous territorial infarction. 2. 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 Moderate underlying microangiopathy and generalized cerebral volume loss. Discharge Plan Discharge Anticipated Discharge Date/Time: 11/16/22 10:15 Patient Disposition: Xfer SNF Discharge Diagnosis: Urine infection Encephalopathy [facility] (SHORT TERM REHAB) Alcon Bates MD [Primary Care Provider] - 1 Week Discharge Medications: New amoxicillin 500 mg Capsule 500 mg PO Q8H Qty: 12 0RF cefuroxime axetil 500 mg tablet 500 mg PO BID Qty: 8 0RF ferrous sulfate 324 mg (65 mg iron) tablet,delayed release (DR/EC) 324 mg PO DAILY Qty: 30 0RF Continued atorvastatin 40 mg Tablet 40 mg PO DAILY acetaminophen-codeine 300-30 mg tablet 2 tab PO BID PRN (Reason: Pain) lamotrigine 25 mg Tablet 25 mg PO DAILY baclofen 20 mg Tablet 20 mg PO BID bupropion HCl 100 mg Tablet 100 mg PO BID magnesium hydroxide [Milk of Magnesia] 400 mg/5 mL Suspension 30 ml PO DAILY PRN (Reason: Constipation) bisacodyl 10 mg Suppository 10 mg KS DAILY PRN (Reason: Constipation) pantoprazole 40 mg tablet,delayed release (DR/EC) 40 mg PO DAILY@0630 Fleet Enema 19-7 gram/118 mL Enema 118 ml KS DAILY PRN (Reason: Constipation) propranolol 20 mg tablet 20 mg PO BID ondansetron 4 mg tablet,disintegrating 4 mg PO Q8H PRN (Reason: Nausea And Vomiting) Eliquis 5 mg Tablet 5 mg PO BID naloxone [Narcan] 4 mg/actuation Mullan,Non-Aerosol 4 mg INTRANASAL Q3M PRN (Reason: Opioid Overdose) Rx Instructions: spray 1 dose into ONE nostril; alternate nostrils w each dose until help arrives fluticasone furoate 27.5 mcg/actuation Mullan,Suspension 1 spray INTRANASAL BEDTIME Rx Instructions: into each nostril Held aspirin 81 mg Tablet,Delayed Release (Dr/Ec) 81 mg PO DAILY Hold Instructions: Follow with PCP for the right timing to restart it. Discharge Orders: Discharge Order (Routine); Ordered 11/16/22 Ordered By: Craig Echavarria Diet: NDD3, chopped , advanced Activity on Discharge: As tolerated Stand Alone Forms: Patient Portal Discharge page Care Plan Goals: Read below Health Concerns: Read below Plan of Treatment: Read below Assessment: Continue antibiotics as prescribed Hold aspirin start IRon pills Repeat CBC as outpatient Discharge Date/Time: 11/16/22 13:45
== END 2022-11-16 13:45 | disposition skilled nursing facility (03) | DRG 689 ==
LOC: HO.ED 13:09 → HO.EDOVER 15:02 → HO.IMC 16:19
PROVIDERS: Admitting Provider Physician Assistant; Emergency Provider Emergency Medicine Emergency Medical Services; PCP Family Medicine; Visit Provider Student in an Organized Health Care Education/Training Program
DX: N39.0 Urinary tract infection, site not specified (principal); G92.8 Other toxic encephalopathy; G47.33 Obstructive sleep apnea (adult) (pediatric); D63.8 Anemia in other chronic diseases classified elsewhere; D47.2 Monoclonal gammopathy; G89.4 Chronic pain syndrome; F01.50 Vascular dementia, unspecified severity, without behavioral disturbance, psychotic disturbance, mood disturbance, and anxiety; Z86.711 Personal history of pulmonary embolism; Z20.822 Contact with and (suspected) exposure to COVID-19; Z79.01 Long term (current) use of anticoagulants; Z79.82 Long term (current) use of aspirin; Z79.899 Other long term (current) drug therapy
CPT/HCPCS: 36415; 70450; 71045; 80048; 80053; 81001; 82947; 83540; 83605; 83690; 84443; 84484; 85025; 85027; 85610; 85730; 87040; 87086; 87088; 87186; 87502; 87635; 92610; 93005; 97162; 99285; J0692; J0696; J1650; J2060; J3371

== ENCOUNTER → 2022-11-13 14:27 | Outpatient (BNV) | payer MEDICARE, SELFPAY | PROVIDERS: Admitting Provider Physician Assistant; Emergency Provider Emergency Medicine Emergency Medical Services; PCP Family Medicine; Visit Provider Internal Medicine | DX: R53.81 Other malaise (principal); N39.0 Urinary tract infection, site not specified; R41.82 Altered mental status, unspecified | CPT/HCPCS: 99223; 99232; 99233; 99239; 99499 ==